=== PATIENT | female | born 1945 | race Two or more races ===

== ENCOUNTER 2018-03-01 08:13 | Outpatient (CLI) | payer OTHER | END 2018-03-01 08:27 | disposition home or self-care (01) | LOC: RAD 501 08:13 | DX: M20.41 Other hammer toe(s) (acquired), right foot (principal); M20.42 Other hammer toe(s) (acquired), left foot ==

== ENCOUNTER 2018-06-26 09:44 | Emergency (ER) | payer OTHER ==
[~2018-06-26] VITALS: Ht 152.4 cm; Wt 59.9 kg
[2018-06-26] MEDS ORDERED: SIMVASTATIN20 MG PO (09:56)
== END 2018-06-26 13:30 | disposition home or self-care (01) ==
LOC: ER 09:44
DX: S93.692A Other sprain of left foot, initial encounter (principal); X50.3XXA Overexertion from repetitive movements, initial encounter; Y93.89 Activity, other specified; Y92.89 Other specified places as the place of occurrence of the external cause; Y99.8 Other external cause status; M77.52 Other enthesopathy of left foot and ankle

== ENCOUNTER 2018-09-13 08:45 | Emergency (ER) | payer OTHER ==
[~2018-09-13] VITALS: Ht 154.9 cm; Wt 56.7 kg
[~2018-09-13 08:45] MED LIST: SIMVASTATIN20 MG PO
[2018-09-13] MEDS ORDERED: MEDROLPACK PO (12:01)
[2018-09-13] MEDS ORDERED: DICLOFENAC SODI50 MG PO (12:01)
[2018-09-13] MEDS ORDERED: NORFLEX100MG PO (12:01)
== END 2018-09-13 12:08 | disposition home or self-care (01) ==
LOC: ER 08:45
DX: M54.5 Low back pain (principal); M25.551 Pain in right hip

== ENCOUNTER 2018-10-09 11:14 | Emergency (ER) | payer OTHER ==
[~2018-10-09] VITALS: Ht 154.9 cm; Wt 59.0 kg
[~2018-10-09 11:14] MED LIST changes: +DICLOFENAC SODI50 MG PO; +MEDROLPACK PO; +NORFLEX100MG PO
== END 2018-10-09 14:38 | disposition home or self-care (01) ==
LOC: ER 11:14
DX: B34.9 Viral infection, unspecified (principal); J11.1 Influenza due to unidentified influenza virus with other respiratory manifestations

== ENCOUNTER 2019-05-11 08:28 | Emergency (ER) | payer OTHER ==
[~2019-05-11] VITALS: Ht 154.9 cm; Wt 59.0 kg
== END 2019-05-11 11:56 | disposition home or self-care (01) ==
LOC: ER 08:28
DX: J01.00 Acute maxillary sinusitis, unspecified (principal); B96.0 Mycoplasma pneumoniae [M. pneumoniae] as the cause of diseases classified elsewhere

== ENCOUNTER → 2019-07-20 | Outpatient (CLI) | payer OTHER ==
[~2019-07-20] MED LIST changes: +SIMVASTATIN80 MG; +TAPAZOLE5 M1 PO; +ZOCOR20 MG PO
== END | disposition home or self-care (01) ==
LOC: RAD 10:42
DX: M25.562 Pain in left knee (principal)

== ENCOUNTER 2019-07-21 07:13 | Outpatient (CLI) | payer OTHER ==
[~2019-07-21 07:13] MED LIST changes: -SIMVASTATIN80 MG; -TAPAZOLE5 M1 PO; -ZOCOR20 MG PO
[2019-07-21] MEDS ORDERED: SIMVASTATIN80 MG (08:34)
[2019-07-21] MEDS ORDERED: TAPAZOLE5 M1 PO (10:30)
== END 2019-07-21 07:24 | disposition home or self-care (01) ==
LOC: LAB 07:13 → RAD 07:13 → LAB 07:24
DX: M25.561 Pain in right knee (principal); Z96.651 Presence of right artificial knee joint; Z76.89 Persons encountering health services in other specified circumstances; M79.652 Pain in left thigh; M79.605 Pain in left leg; D64.89 Other specified anemias; E88.89 Other specified metabolic disorders; D68.8 Other specified coagulation defects; N39.0 Urinary tract infection, site not specified; Z22.322 Carrier or suspected carrier of Methicillin resistant Staphylococcus aureus; I49.8 Other specified cardiac arrhythmias

== ENCOUNTER 2019-08-01 08:11 | Inpatient (IN) | payer OTHER ==
[~2019-08-01] VITALS: Wt 5.0 kg
[~2019-08-01 08:11] MED LIST changes: +SIMVASTATIN80 MG; +TAPAZOLE5 M1 PO
[2019-08-05] MEDS ORDERED: TAPAZOLE5 M1 PO (07:52)
[2019-08-22] MEDS ORDERED: ZOCOR20 MG PO (11:06)
== END 2019-08-24 16:26 | DRG 470 ==
LOC: SURH 08-22 05:30 → O/R 08-22 05:30 → SURG 08-22 07:00 → SURH 08-22 13:25
PROVIDERS: ADMIT Orthopaedic Surgery
PROC: 0MNP0ZZ Release Left Knee Bursa and Ligament, Open Approach (ICD-10-PCS; 2019-08-22)
PROC: 0SRD0J9 Replacement of Left Knee Joint with Synthetic Substitute, Cemented, Open Approach (ICD-10-PCS; principal; 2019-08-22 07:00)
DX: M17.12 Unilateral primary osteoarthritis, left knee (principal); M24.562 Contracture, left knee; E05.80 Other thyrotoxicosis without thyrotoxic crisis or storm; I10 Essential (primary) hypertension

== ENCOUNTER 2019-08-05 07:09 | Outpatient (CLI) | payer OTHER ==
[2019-08-05] MEDS ORDERED: TAPAZOLE5 M1 PO (07:52)
== END 2019-08-05 15:00 | disposition home or self-care (01) ==
LOC: RAD 07:09 → LAB 07:09
DX: I49.8 Other specified cardiac arrhythmias (principal); D64.89 Other specified anemias; E88.89 Other specified metabolic disorders; D68.8 Other specified coagulation defects; N39.0 Urinary tract infection, site not specified; Z22.322 Carrier or suspected carrier of Methicillin resistant Staphylococcus aureus

== ENCOUNTER → 2019-09-07 10:26 | Outpatient (CLI) | payer OTHER ==
[~2019-09-07 10:26] MED LIST changes: +ZOCOR20 MG PO
== END | disposition home or self-care (01) ==
LOC: LAB 10:26
DX: D64.89 Other specified anemias (principal); M06.4 Inflammatory polyarthropathy

== ENCOUNTER 2019-09-07 15:24 | Outpatient (CLI) | payer OTHER | END 2019-09-07 15:32 | disposition home or self-care (01) | LOC: NUCLEAR 15:24 | DX: I87.2 Venous insufficiency (chronic) (peripheral) (principal) ==

== ENCOUNTER → 2019-09-18 08:35 | Outpatient (CLI) | payer OTHER | END | disposition home or self-care (01) | LOC: LAB 08:35 | DX: M06.4 Inflammatory polyarthropathy (principal); D64.89 Other specified anemias ==

== ENCOUNTER 2020-10-28 10:49 | Emergency (ER) | payer OTHER ==
[~2020-10-28] VITALS: Ht 157.5 cm; Wt 60.8 kg
== END 2020-10-28 14:57 | disposition home or self-care (01) ==
LOC: ER 10:49
DX: B34.9 Viral infection, unspecified (principal); Z03.818 Encounter for observation for suspected exposure to other biological agents ruled out; R53.81 Other malaise; R06.02 Shortness of breath; R51.9 Headache, unspecified

== ENCOUNTER 2021-02-25 14:41 | Outpatient (CLI) | payer OTHER | END 2021-02-25 14:45 | disposition home or self-care (01) | LOC: SONOGRAMA 14:41 | PROVIDERS: ATTEND Pathology Anatomic Pathology & Clinical Pathology | DX: E04.2 Nontoxic multinodular goiter (principal) ==

== ENCOUNTER 2021-06-17 11:33 | Outpatient (CLI) | payer OTHER | END 2021-06-17 11:49 | disposition home or self-care (01) | LOC: RAD 11:33 | PROVIDERS: ATTEND Orthopaedic Surgery | DX: M25.551 Pain in right hip (principal); M54.5 Low back pain; M25.531 Pain in right wrist ==

== ENCOUNTER 2022-08-18 11:12 | Emergency (ER) | payer OTHER ==
[~2022-08-18] VITALS: Ht 154.9 cm; Wt 53.5 kg
== END 2022-08-18 15:38 | disposition home or self-care (01) ==
LOC: ER 11:12
DX: B34.9 Viral infection, unspecified (principal); Z20.822 Contact with and (suspected) exposure to COVID-19; E03.9 Hypothyroidism, unspecified

== ENCOUNTER 2022-08-25 09:13 | Outpatient (CLI) | payer OTHER | END 2022-08-25 09:17 | disposition home or self-care (01) | LOC: SONOGRAMA 09:13 | PROVIDERS: ATTEND Pathology Anatomic Pathology & Clinical Pathology | DX: E04.2 Nontoxic multinodular goiter (principal); E04.1 Nontoxic single thyroid nodule ==

== ENCOUNTER 2022-10-12 10:22 | Emergency (ER) | payer OTHER ==
[~2022-10-12] VITALS: Ht 152.4 cm; Wt 55.3 kg
== END 2022-10-12 17:37 | disposition home or self-care (01) ==
LOC: ER 10:22
DX: K29.70 Gastritis, unspecified, without bleeding (principal); E03.9 Hypothyroidism, unspecified

== ENCOUNTER 2022-10-16 08:41 | Emergency (ER) | payer OTHER ==
[~2022-10-16] VITALS: Ht 147.3 cm; Wt 55.3 kg
[2022-10-16] MEDS ORDERED: LIPITOR40 M1 PO (08:52)
[2022-10-16] MEDS ORDERED: ARICEPT5 MG PO (08:52)
== END 2022-10-16 13:39 | disposition home or self-care (01) ==
LOC: ER 08:41
DX: R10.13 Epigastric pain (principal); E78.00 Pure hypercholesterolemia, unspecified

== ENCOUNTER 2023-05-01 10:16 | Outpatient (CLI) | payer OTHER ==
[~2023-05-01 10:16] MED LIST changes: +ARICEPT5 MG PO; +LIPITOR40 M1 PO
== END 2023-05-01 10:21 | disposition home or self-care (01) ==
LOC: RAD 10:16
PROVIDERS: ATTEND Orthopaedic Surgery
DX: M16.11 Unilateral primary osteoarthritis, right hip (principal)

== ENCOUNTER 2024-01-07 09:06 | Emergency (ER) | payer OTHER ==
[~2024-01-07] VITALS: Ht 152.4 cm; Wt 43.5 kg
[2024-01-07] MEDS ORDERED: ACETAMINOPHEN 500 MG GEL..CAP PO STA (09:39)
[2024-01-07] MEDS ORDERED: GUAIFENESIN 200 MG/10 ML BLIST.PACK PO STA (09:40)
[2024-01-07] MEDS ORDERED: METHYLPREDNISOLONE SOD SUCC 125 MG VIAL IM STA (09:40)
[2024-01-07 10:19] LABS: HEMATOCRIT 38.2 % (36.0-45.00); HEMOGLOBIN 12.8 g/dL (12.0-15.00); MEAN CELL VOLUME 87.8 fL (80.00-100.00); MEAN CORPUSCULAR HEMOGLOBIN 29.3 pg (27.00-32.0); MEAN CORPUSCULAR HGB CONC 33.4 g/dl (32.0-36.0); PLATELET COUNT 415 K/uL (150-450); RED BLOOD COUNT 4.35 M/uL (4.00-6.00); RED CELL DISTRIBUTION WIDTH 14.7 % (11.5-14.5)
[2024-01-07 11:03] LABS: ALBUMIN 3.5 gm/dL (3.4-5.0); BILIRUBIN TOTAL 0.37 mg/dL (0.3-1.2); CALCIUM 9.7 mg/dL (8.5-10.1); CREATININE SERUM 0.81 mg/dL (0.55-1.02); GFR 68.38; GLOBULINA 4.6 G/DL (2.4-3.5); POTASSIUM 3.76 mEq/L (3.5-5.1); TOTAL PROTEIN 8.1 gm/dL (6.4-8.2)
[2024-01-07] MEDS ORDERED: LEVALBUTEROL HCL 0.63 MG/3 ML SOLUTION IH SCH (12:30)
[2024-01-07] MEDS ORDERED: ZITHROMAX500 MG PO (12:54)
[2024-01-07] MEDS ORDERED: BENZONATATE100 MG PO (12:54)
== END 2024-01-07 13:12 | disposition home or self-care (01) ==
LOC: ER 09:06
PROVIDERS: General Practice
DX: J06.9 Acute upper respiratory infection, unspecified (principal); E78.00 Pure hypercholesterolemia, unspecified; Z20.822 Contact with and (suspected) exposure to COVID-19
CPT/HCPCS: 36415; 71045; 94640; 99283; J3490